=== PATIENT | female | born 1950 | race Caucasian/White ===

== ENCOUNTER 2022-02-09 05:20 | Emergency (ER) | payer MEDICARE, OTHER ==
[~2022-02-09] VITALS: Ht 170.2 cm; Wt 59.1 kg
[2022-02-09 05:23] VITALS: BP 40/25; PULSE 80; TEMP 97.4
[2022-02-09 05:34] LABS: HEMATOCRIT 38.2 % (37.0-47.0); HEMOGLOBIN 10.8 g/dl (12.5-16.0); MEAN CELL VOLUME 111 fl (80.0-100.0); MEAN CORPUSCULAR HEMOGLOBIN 31 pg (27-31); MEAN CORPUSCULAR HGB CONC 28 g/dl (33.0-37.0); MEAN PLATELET VOLUME 9.5 fl (7.4-10.4); PLATELET COUNT 316 K/mm3 (130-400); RED BLOOD COUNT 3.45 M/mm3 (4.10-5.30); REDCELL DISTRIBUTION WIDTH-CV 12.3 % (11.5-14.5)
[2022-02-09 05:51] LABS: ALBUMIN 2.6 gm/dL (3.4-4.8); BILIRUBIN,TOTAL 0.1 mg/dL (0.2-1.2); CALCIUM 8.2 mg/dL (8.4-10.2); CREATININE, serum 1.74 mg/dL (0.57-1.11); POTASSIUM 4.4 mmol/L (3.5-4.5); TOTAL PROTEIN 5.1 gm/dL (6.2-8.1)
[2022-02-09 05:59] LABS: BAND 16 % (0-10); LYMPHOCYTE 7 % (20.0-51.0); NEUTROPHILS 71 % (42.0-75.2); PLATELET ESTIMATE NORMAL (NORMAL)
[2022-02-09 06:00] LABS: HYPOCHROMIA 2+
[2022-02-09 06:11] LABS: TSH w REFLEX 6.397 uIU/mL (0.350-4.940)
[2022-02-09 06:12] LABS: TROPONIN-I 0.813 ng/mL (0.00-0.033)
== END 2022-02-09 07:51 | disposition expired ==
LOC: COL.ER 05:20
PROVIDERS: Emergency Medicine
DX: I46.9 Cardiac arrest, cause unspecified (principal)
CPT/HCPCS: 31860; A4314